=== PATIENT | male | born 1975 | race Caucasian/White ===

== ENCOUNTER 2021-03-07 16:24 | Emergency (ER) | payer BC, SELFPAY ==
[~2021-03-07] VITALS: Ht 180.3 cm; Wt 108.9 kg
[2021-03-07 16:24] VITALS: BP_SYST 108
--- NOTE | 2021-03-07 16:24 | NUR ---
BROUGHT BACK TO OUTSIDE TRIAGE TENT, TRIAGED. AWAITING ER BED.
--- NOTE | 2021-03-07 16:25 | NUR ---
Pt came into ER with complaint of flu like symptoms VSS no distress noted.
--- NOTE | 2021-03-07 16:30 | NUR ---
ER at bedside examining patient.
--- NOTE | 2021-03-07 16:35 | NUR ---
COVID SWAB PERFORMED AT BEDSIDE AND SENT TO LAB
[2021-03-07] MEDS ORDERED: ZIT250 PO (17:40)
[2021-03-07] MEDS ORDERED: PRED20TA PO (17:40)
--- NOTE | 2021-03-07 17:58 | NUR ---
Patient given written and verbal discharge instructions and verbalizes understanding. ER MD discussed with patient the results and treatment provided. Patient in stable condition. ID arm band removed. I Rx of azithromax and prednisone given. Patient educated on pain management and to follow up with PMD. Pain Scale 0/10. Opportunity for questions provided and answered. Medication side effect fact sheet provided.
[2021-03-07 18:01] VITALS: BP_SYST 108
== END 2021-03-07 17:58 | disposition home or self-care (01) ==
LOC: SED 16:24
DX: U07.1 COVID-19 (principal); J12.82 Pneumonia due to coronavirus disease 2019; Z88.8 Allergy status to other drugs, medicaments and biological substances; Z79.899 Other long term (current) drug therapy
CPT/HCPCS: 36415; 71045; 99284

== ENCOUNTER 2021-03-10 14:16 | Inpatient (IN) | payer BC, SELFPAY ==
[~2021-03-10] VITALS: Ht 180.3 cm; Wt 109.8 kg
[2021-03-10 14:16] VITALS: BP_SYST 118
[~2021-03-10 14:16] MED LIST: PRED20TA PO; ZIT250 PO
--- NOTE | 2021-03-10 14:16 | NUR ---
Placed in room 8 . Placed on monitor worker, blood pressure machine and pulse oximeter. To gown for exam. Side rails up.
--- NOTE | 2021-03-10 14:16 | NUR ---
ASSISTED OUT OF CAR TO WHEELCHAIR, PLACED IN BED #8 AND TRIAGED. REPORT GIVEN TO JORGE L
--- NOTE | 2021-03-10 14:20 | NUR ---
PT BIB FAMILY FOR WORSENING SOB AND O2 SAT 88% AT HOME ON RA. PT WAS RECENTLY TESTED + FOR COVID. PT PRESENTS FATIGUED, TACHYPNEIC, DIAPHORETIC. OTHER V/S STABLE. PLACED ON SIMPLE MASK @ 8LPM, O2 SAT 93%
--- NOTE | 2021-03-10 14:30 | NUR ---
# 20 gauge angiocath placed to RAC. Use of asceptic technique. Opsite placed over site. Blood return noted. Blood for lab drawn from site. Flushed with 10 cc of normal saline. No evidence of infiltration noted. Patient tolerated well.
--- NOTE | 2021-03-10 14:50 | NUR ---
ER DR. MEDINA AT THE BEDSIDE EXAMINING PT
--- NOTE | 2021-03-10 15:10 | NUR ---
COVID SWAB PERFORMED AT BEDSIDE AND SENT TO LAB
--- NOTE | 2021-03-10 15:18 | NUR ---
PORTABLE X-RAY AT THE BEDSIDE
[2021-03-10 15:21] LABS: BASOPHILS % (AUTO) 0.8 % (0.0-2.0); HEMATOCRIT 42.4 % (36-54); HEMOGLOBIN 14.3 g/dL (14.0-18.0); LYMPHOCYTES # (AUTO) 0.8 K/uL (1.0-5.5); LYMPHOCYTES % (AUTO) 12.5 % (20.5-51.5); MEAN CORPUSCULAR HEMOGLOBIN 30 pg (27-31); MEAN CORPUSCULAR HGB CONC 34 % (32-36); MEAN CORPUSCULAR VOLUME 89 fL (79.0-98.0); MONOCYTES # (AUTO) 0.5 K/uL (0.0-1.0); MONOCYTES % (AUTO) 8.8 % (1.7-9.3); NEUTROPHILS # (AUTO) 4.7 K/uL (1.8-7.7); NEUTROPHILS % (AUTO) 77.9 % (40.0-70.0); PLATELET COUNT (AUTO) 250 K/uL (130-430); RED BLOOD CELL COUNT(AUTO) 4.76 MIL/uL (4.2-6.2); RED CELL DISTRIBUTION WIDTH 13.4 % (9.0-15.0)
[2021-03-10 15:35] LABS: CALCIUM 8.8 mg/dL (8.4-11.0); CREATININE 1.14 mg/dL (0.55-1.30)
[2021-03-10 15:47] LABS: ALBUMIN 3.1 g/dL (3.4-4.8); INR 0.9 (0.80-1.20); PROTHROMBIN TIME 9.8 SECS (9.5-12.5); TOTAL BILIRUBIN 0.2 mg/dL (0.0-1.0)
[2021-03-10 16:07] LABS: CKMB RELATIVE INDEX 0.1 (0.0-2.9); CREATINE KINASE MB 0.5 ng/mL (0-3.6)
[2021-03-10] MEDS ORDERED: AZITHROMYCIN 500 MG in NS 250 ML IV ONE (16:30)
[2021-03-10] MEDS ORDERED: DEXAMETHASONE SOD PHOSPHATE 10 MG/ML VIAL IVP ONE (16:30)
[2021-03-10 16:37] LABS: C-REACTIVE PROTEIN QUANT 12.2 mg/dL (0-0.5)
[2021-03-10] MEDS ORDERED: AZITHROMYCIN 500 MG/VIAL (ZITHROMAX) IV ONE (16:44)
[2021-03-10] MEDS ORDERED: cefTRIAXone 2 GM VIAL ONE (16:44)
[2021-03-10] MEDS ORDERED: IOHEXOL 350 mgI/mL, 150 ML INFUS..BTL IV ONE (16:45)
--- NOTE | 2021-03-10 16:52 | NUR ---
Patient transported to radiology via WC, accompanied by STAFF.
[2021-03-10] MEDS ORDERED: ALBUTEROL MDI INHALATION 8 GM INH INH PRN (17:30)
[2021-03-10] MEDS: ALBUTEROL MDI INHALATION 8 GM INH INH SCH (18:00)
[2021-03-10] MEDS: DEXAMETHASONE SOD PHOSPHATE 10 MG/ML VIAL IVP SCH (18:40)
[2021-03-10] MEDS: D5/0.45 NS 1,000 ML IV SCH (19:20)
--- NOTE | 2021-03-10 19:21 | NUR ---
REPORT GIVEN TO LINDSEY DUKES FOR CONTINUING CARE
--- NOTE | 2021-03-10 19:49 | NUR ---
ER Ron Tran at bedside examining patient.
--- NOTE | 2021-03-10 20:05 | NUR ---
Urine specimen collected and sent to lab.
[2021-03-10] MEDS ORDERED: ENOXAPARIN SODIUM 40 MG/0.4 ML SYRINGE SUBCUT ONE (21:00)
[2021-03-10] MEDS: ASCORBIC ACID 500 MG TABLET PO SCH (21:11)
[2021-03-10 21:44] LABS: BILIRUBIN,URINE NEGATIVE (NEGATIVE); BLOOD, URINE NEGATIVE (NEGATIVE); CLARITY/URINE CLEAR (CLEAR); COLOR,URINE YELLOW (YELLOW); GLUCOSE,URINE NEGATIVE (NEGATIVE); KETONES,URINE NEGATIVE (NEGATIVE); LEUKOCYTE ESTERASE ,URINE NEGATIVE (NEGATIVE); NITRITE, URINE NEGATIVE (NEGATIVE); PROTEIN URINE NEGATIVE (NEGATIVE); UROBILINOGEN,URINE 0.2 (0.2-1.0)
[2021-03-10 22:26] LABS: BACTERIA,URINE RARE /HPF (None Seen); RBC,URINE NONE SEEN /HPF (0-3)
[2021-03-10 22:28] LABS: MUCUS,URINE None Seen /LPF (None Seen)
--- NOTE | 2021-03-10 22:45 | NUR ---
Provided pillow, water and re-position as request.
--- NOTE | 2021-03-11 01:44 | NUR ---
Patient resting quietly. No acute distress noted. Vital signs within normal range.
--- NOTE | 2021-03-11 03:22 | NUR ---
Patient resting quietly. No acute distress noted. Vital signs within normal range.
--- NOTE | 2021-03-11 05:15 | NUR ---
Patient resting quietly. No acute distress noted. Vital signs within normal range.
--- NOTE | 2021-03-11 05:56 | NUR ---
CONSULTATION PAGED/CALLED Reason for Consultation: COVID PNA Person Who was Notified: JUSTUS Consulting Physician: FRANCES Edi Manager Specialty: Ordering Physician: STEVENSON
--- NOTE | 2021-03-11 05:57 | NUR ---
CONSULTATION PAGED/CALLED Reason for Consultation: COVID PNA Person Who was Notified: JUSTUS Consulting Physician: WAYNE Mis Manager Specialty: Ordering Physician: STEVENSON
[2021-03-11] MEDS: ALBUTEROL MDI INHALATION 8 GM INH INH SCH ×4 (05:59→18:29)
--- NOTE | 2021-03-11 07:18 | NUR ---
REPORT RECEIVED FROM ERNST PORTILLO. PT IS CURRENTLY ON A 100% NON-REBREATHER. CURRENT O2 SAT IS 91%. DR. DANIELS CALLED
[2021-03-11 07:44] LABS: BASOPHILS % (AUTO) 0.2 % (0.0-2.0); HEMATOCRIT 41.6 % (36-54); LYMPHOCYTES # (AUTO) 0.5 K/uL (1.0-5.5); LYMPHOCYTES % (AUTO) 10.1 % (20.5-51.5); MEAN CORPUSCULAR HEMOGLOBIN 30 pg (27-31); MEAN CORPUSCULAR HGB CONC 34 % (32-36); MEAN CORPUSCULAR VOLUME 88 fL (79.0-98.0); MONOCYTES # (AUTO) 0.5 K/uL (0.0-1.0); MONOCYTES % (AUTO) 10.1 % (1.7-9.3); NEUTROPHILS # (AUTO) 4.2 K/uL (1.8-7.7); NEUTROPHILS % (AUTO) 79.6 % (40.0-70.0); PLATELET COUNT (AUTO) 251 K/uL (130-430); RED BLOOD CELL COUNT(AUTO) 4.71 MIL/uL (4.2-6.2); RED CELL DISTRIBUTION WIDTH 13.5 % (9.0-15.0); WHITE BLOOD COUNT (AUTO) 5.2 K/uL (4.8-10.8)
[2021-03-11 07:51] LABS: PROTHROMBIN TIME 10.2 SECS (9.5-12.5)
[2021-03-11] MEDS: ASCORBIC ACID 500 MG TABLET PO SCH ×2 (09:00→20:33)
[2021-03-11] MEDS ORDERED: CHOLECALCIFEROL (VITAMIN D3) 5,000 UNIT TABLET PO SCH (09:00)
[2021-03-11] MEDS: DEXAMETHASONE SOD PHOSPHATE 10 MG/ML VIAL IVP SCH (09:00)
[2021-03-11 09:47] LABS: CALCIUM 8.7 mg/dL (8.4-11.0); CREATININE 0.94 mg/dL (0.55-1.30); POTASSIUM 4.4 mmol/L (3.5-5.1)
[2021-03-11] MEDS ORDERED: ENOXAPARIN SODIUM 40 MG/0.4 ML SYRINGE SUBCUT ONE (10:00)
[2021-03-11 10:02] LABS: ALBUMIN 2.8 g/dL (3.4-4.8); TOTAL BILIRUBIN 0.2 mg/dL (0.0-1.0)
--- NOTE | 2021-03-11 10:20 | NUR ---
ALL AM MEDS GIVEN
[2021-03-11] MEDS: AZITHROMYCIN 500 MG in NS 250 ML IV SCH (10:49)
[2021-03-11] MEDS: PANTOPRAZOLE SODIUM 40 MG/VIAL (PROTONIX) IVP SCH (10:50)
[2021-03-11] MEDS ORDERED: ENOXAPARIN SODIUM 40 MG/0.4 ML SYRINGE ONE (10:52)
--- NOTE | 2021-03-11 11:15 | NUR ---
MRSA COLLECTED AND SENT TO THE LAB
--- NOTE | 2021-03-11 12:59 | NUR ---
DR DANIELS HERE TO SEE PT.
[2021-03-11] MEDS: D5/0.45 NS 1,000 ML IV SCH (13:30)
--- NOTE | 2021-03-11 17:00 | NUR ---
PT PLACED IN A HOSPITAL BED
[2021-03-11 18:04] VITALS: BP_SYST 127
--- NOTE | 2021-03-11 19:00 | NUR ---
pt having dinner in bed
[2021-03-11] MEDS: ENOXAPARIN SODIUM 40 MG/0.4 ML SYRINGE SUBCUT SCH (20:34)
--- NOTE | 2021-03-11 22:10 | NUR ---
pt is currently awake, offered to turn the lights off, however, the pt refused
--- NOTE | 2021-03-11 23:30 | NUR ---
Report recieved from LINDSEY Awad for continuation of care.
--- NOTE | 2021-03-11 23:35 | NUR ---
care endorsed to Jose Manuel PORTILLO
[2021-03-12] VITALS (10 sets, daily range): BP systolic 110–148
[2021-03-12] MEDS: ALBUTEROL MDI INHALATION 8 GM INH INH SCH ×3 (00:31→14:03)
--- NOTE | 2021-03-12 06:00 | NUR ---
800 mL of urine removed from urinal.
--- NOTE | 2021-03-12 06:21 | NUR ---
Dr. Nidia mcelroy for low O2 saturation.
--- NOTE | 2021-03-12 06:23 | NUR ---
Reported O2 saturation to Dr. Jacob, orders received.
[2021-03-12 06:51] LABS: BASOPHILS % (AUTO) 0.1 % (0.0-2.0); HEMATOCRIT 41.7 % (36-54); LYMPHOCYTES # (AUTO) 0.6 K/uL (1.0-5.5); LYMPHOCYTES % (AUTO) 7.1 % (20.5-51.5); MEAN CORPUSCULAR HEMOGLOBIN 30 pg (27-31); MEAN CORPUSCULAR HGB CONC 34 % (32-36); MEAN CORPUSCULAR VOLUME 88 fL (79.0-98.0); MONOCYTES # (AUTO) 0.8 K/uL (0.0-1.0); MONOCYTES % (AUTO) 9.5 % (1.7-9.3); NEUTROPHILS # (AUTO) 7.3 K/uL (1.8-7.7); NEUTROPHILS % (AUTO) 83.3 % (40.0-70.0); PLATELET COUNT (AUTO) 282 K/uL (130-430); RED BLOOD CELL COUNT(AUTO) 4.73 MIL/uL (4.2-6.2); RED CELL DISTRIBUTION WIDTH 13.6 % (9.0-15.0); WHITE BLOOD COUNT (AUTO) 8.8 K/uL (4.8-10.8)
--- NOTE | 2021-03-12 07:10 | NUR ---
Report given to LINDSEY Cobb for continuation of care.
[2021-03-12 07:15] LABS: ALBUMIN 2.8 g/dL (3.4-4.8); CALCIUM 8.7 mg/dL (8.4-11.0); CREATININE 0.91 mg/dL (0.55-1.30); PHOSPHORUS 3.7 mg/dL (2.7-4.5); TOTAL BILIRUBIN 0.3 mg/dL (0.0-1.0)
--- NOTE | 2021-03-12 07:15 | NUR ---
REPORT RECEIVED FROM LINDSEY PEMBERTON FOR CONTINUING CARE
--- NOTE | 2021-03-12 07:36 | NUR ---
RT AT THE BEDSIDE
--- NOTE | 2021-03-12 08:30 | NUR ---
PT PROVIDED WITH BREAKFAST TRAY
[2021-03-12] MEDS ORDERED: CHOLECALCIFEROL (VITAMIN D3) 2,000 UNIT TABLET PO SCH (09:00)
[2021-03-12] MEDS: DEXAMETHASONE SOD PHOSPHATE 10 MG/ML VIAL IVP SCH (09:01)
[2021-03-12] MEDS: PANTOPRAZOLE SODIUM 40 MG/VIAL (PROTONIX) IVP SCH (09:02)
[2021-03-12] MEDS: ASCORBIC ACID 500 MG TABLET PO SCH ×2 (09:02→20:27)
[2021-03-12] MEDS: CHOLECALCIFEROL (VITAMIN D3) 5,000 UNIT TABLET PO SCH (09:02)
[2021-03-12] MEDS: ENOXAPARIN SODIUM 40 MG/0.4 ML SYRINGE SUBCUT SCH ×2 (09:03→20:27)
[2021-03-12] MEDS: ACETAMINOPHEN 500 MG TABLET PO PRN (09:09)
--- NOTE | 2021-03-12 09:47 | NUR ---
SW FOR STATUS UPDATE
[2021-03-12 10:53] LABS: ERYTHROCYTE SEDIMENTATION RATE 69 MM/HR (0-15)
[2021-03-12] MEDS: D5/0.45 NS 1,000 ML IV SCH ×2 (11:56→16:32)
--- NOTE | 2021-03-12 13:00 | NUR ---
TO ICU. RECEIVED PT IN ROOM 127-B, HE WAS ALERT, ORIENTED, SKIN MOIST TO TOUCH, BEADS OF SWEAT ALL OVER HIS BODY, DRY TOWEL PROVIDED, PT CONNECTED TO [place] LAYER, PULSE OXIMETER, HIGH FLOW IN USE, VITAL SIGNS STABLE, ORIENTATION TO SURROUNDINGS PROVIDED, PHONE AND CALL LIGHT IN REACH.
--- NOTE | 2021-03-12 13:30 | NUR ---
IV ANOTHER IV ACCESS INSERTED TO RIGHT HAND BY CHARGE NURSE.
[2021-03-12 13:37] LABS: C-REACTIVE PROTEIN QUANT 9.3 mg/dL (0-0.5)
--- NOTE | 2021-03-12 14:33 | NUR ---
FAMILY CALLED AND SPOKE TO PT'S SARAH FOR HIS UPDATE, DISCUSSED ON PLAN TO INSERT A PICC LINE. SHE STATED TO HOLD OFF ON THE PICC, MIGHT HAVE BLOOD CLOT ISSUE. SHE HAD SPOKEN TO HER SISTER IN LAW WHO IS A NURSE.
[2021-03-12] MEDS: AZITHROMYCIN 500 MG in NS 250 ML IV SCH (16:44)
--- NOTE | 2021-03-12 18:23 | NUR ---
ACTIVITY PATIENT HAVING DINNER AT THIS HOUR AND SPEAKING TO HIS OVER THE PHONE, NEEDS ASSESSED AND ATTENDED.
[2021-03-13] VITALS (24 sets, daily range): BP systolic 119–148
[2021-03-13] MEDS: D5/0.45 NS 1,000 ML IV SCH (03:43)
[2021-03-13] MEDS: ALBUTEROL MDI INHALATION 8 GM INH INH SCH ×4 (05:52→19:31)
--- NOTE | 2021-03-13 06:40 | NUR ---
0030 S/B DR. CESAR NO NEW ORDERS HELL BACK IN AM TO TALK TO PHARMACY, IN CASE NEEDS INTUBATION FOR TRANSFER TO HIGHER LEVEL OF CARE.
--- NOTE | 2021-03-13 06:42 | NUR ---
[id number] DOWNTIME CHARTING SEE PRINT OUTS.
--- NOTE | 2021-03-13 06:52 | NUR ---
Nutrition Update Eliseo Scale 18 noted. Pt admitted for Acute Respiratory Failure, COVID Pneumonia Diet: Regular BMI: 33.9 kg/m2 RD to follow per nutrition care standards.
--- NOTE | 2021-03-13 07:00 | NUR ---
Recv report fr Adkins rn, patient came fr home already previously diagnosed with covid, he came in for increasing sob, patient is in icu for close monitoring, he is currently on 40L @ 100% hi flow, he aao x 4, he complains of pain whenever he take deep breath, i will check his med orders to see if has any pain medication order, i will continuue nursing care and interventions.
[2021-03-13 07:35] LABS: CALCIUM 8.7 mg/dL (8.4-11.0); CREATININE 0.81 mg/dL (0.55-1.30); POTASSIUM 3.9 mmol/L (3.5-5.1)
[2021-03-13 07:40] LABS: ALBUMIN 2.4 g/dL (3.4-4.8); C-REACTIVE PROTEIN QUANT 8.4 mg/dL (0-0.5); TOTAL BILIRUBIN 0.4 mg/dL (0.0-1.0)
[2021-03-13 07:56] LABS: BASOPHILS % (AUTO) 0.1 % (0.0-2.0); HEMATOCRIT 39.4 % (36-54); HEMOGLOBIN 13.3 g/dL (14.0-18.0); LYMPHOCYTES # (AUTO) 0.7 K/uL (1.0-5.5); LYMPHOCYTES % (AUTO) 6.5 % (20.5-51.5); MEAN CORPUSCULAR HEMOGLOBIN 30 pg (27-31); MEAN CORPUSCULAR HGB CONC 34 % (32-36); MEAN CORPUSCULAR VOLUME 89 fL (79.0-98.0); MONOCYTES % (AUTO) 9.1 % (1.7-9.3); NEUTROPHILS # (AUTO) 9.4 K/uL (1.8-7.7); NEUTROPHILS % (AUTO) 84.3 % (40.0-70.0); PLATELET COUNT (AUTO) 299 K/uL (130-430); RED BLOOD CELL COUNT(AUTO) 4.44 MIL/uL (4.2-6.2); RED CELL DISTRIBUTION WIDTH 13.5 % (9.0-15.0); WHITE BLOOD COUNT (AUTO) 11.1 K/uL (4.8-10.8)
[2021-03-13] MEDS: PANTOPRAZOLE SODIUM 40 MG/VIAL (PROTONIX) IVP SCH (08:48)
[2021-03-13] MEDS: DEXAMETHASONE SOD PHOSPHATE 10 MG/ML VIAL IVP SCH (08:49)
[2021-03-13] MEDS: CHOLECALCIFEROL (VITAMIN D3) 5,000 UNIT TABLET PO SCH (08:49)
[2021-03-13] MEDS: ASCORBIC ACID 500 MG TABLET PO SCH ×2 (08:49→21:44)
[2021-03-13] MEDS: ACETAMINOPHEN 500 MG TABLET PO PRN (08:58)
--- NOTE | 2021-03-13 10:44 | NUR ---
Patient agreed to prone...
[2021-03-13] MEDS ORDERED: IVERMECTIN 3 MG TABLET PO ONE ×2 (13:00→20:30)
--- NOTE | 2021-03-13 13:28 | NUR ---
[facility] CONSULTING MD: DR. CELAYA DIALED: [phone] PERSON NOTIFIED: TRISHA ORDERED BY: DR. GAMINO
[2021-03-13] MEDS: ENOXAPARIN SODIUM 40 MG/0.4 ML SYRINGE SUBCUT SCH ×2 (14:01→21:02)
[2021-03-13] MEDS: BARICITINIB -Non-Formulary 2 MG TABLET PO SCH (14:02)
--- NOTE | 2021-03-13 15:35 | NUR ---
Remains in prone position. Sats 97%, HR 60. Pt sleeping. Remains on 100% High Flow. Voided 500cc prieto urine.
--- NOTE | 2021-03-13 17:20 | NUR ---
RT NOTE: 1720 Pt awake and wanted to sit up in bed. SpO2 dropped to low 80s. Increased FiO2 to 100% and flow to 40LPM on vapotherm. SpO2 is slowly improving. RN notified. Addendum: 03/13/21 at 1748 by Yoon Moran RT Amended: Links added.
[2021-03-13] MEDS: DOXYCYCLINE HYCLATE 100 MG in D5W 100 ML IV SCH (21:42)
--- NOTE | 2021-03-13 23:33 | NUR ---
Late Entry @1950, received patient from Leighton PORTILLO. Patient is aao x4, covid-19 positive. He is on 40L , 100% Hi Flow with saturation at 91%. Lung sounds are diminished with rhonchi, He denies any pain at this time. Sinus Rhythm on the monitor. PIV #20 on the RAC running D51/2NS @50ML/HR and #20 on the RFA. Abdomen is soft and non tender. No edema in extremities. Skin is intact. Patient able to void in a urinal. Assisted with repositioning. will continue to monitor.
[2021-03-14] VITALS (25 sets, daily range): BP systolic 114–161
--- NOTE | 2021-03-14 00:22 | NUR ---
Patient in prone position in bed, saturation at 88-90%.
[2021-03-14] MEDS: ALBUTEROL MDI INHALATION 8 GM INH INH SCH ×5 (05:41→23:35)
--- NOTE | 2021-03-14 07:15 | NUR ---
received report from endorsing operation shift supervisor RN for continuation of care, patient is lying in bed with an IVF of D5 1/2 NS @ 50 ml/hr.no signs of acute distress noted at this time. awake oriented x 4. on High Flow 40L ,95%. sinus rhythm, oxygen saturation is between 85-90 advised to keep on turning from side to side or do proning, uses the urinal 450 ml, dark prieto in color.bed locked at lowest position, fall and safety precaution in place.
[2021-03-14 07:29] LABS: BASOPHILS % (AUTO) 0.1 % (0.0-2.0); HEMATOCRIT 38.7 % (36-54); HEMOGLOBIN 13.3 g/dL (14.0-18.0); LYMPHOCYTES % (AUTO) 9.2 % (20.5-51.5); MEAN CORPUSCULAR HEMOGLOBIN 30 pg (27-31); MEAN CORPUSCULAR HGB CONC 34 % (32-36); MEAN CORPUSCULAR VOLUME 88 fL (79.0-98.0); MONOCYTES # (AUTO) 1.2 K/uL (0.0-1.0); MONOCYTES % (AUTO) 10.8 % (1.7-9.3); NEUTROPHILS # (AUTO) 8.9 K/uL (1.8-7.7); NEUTROPHILS % (AUTO) 79.9 % (40.0-70.0); PLATELET COUNT (AUTO) 316 K/uL (130-430); RED BLOOD CELL COUNT(AUTO) 4.42 MIL/uL (4.2-6.2); RED CELL DISTRIBUTION WIDTH 13.1 % (9.0-15.0); WHITE BLOOD COUNT (AUTO) 11.2 K/uL (4.8-10.8)
[2021-03-14] MEDS: DOXYCYCLINE HYCLATE 100 MG in D5W 100 ML IV SCH ×2 (08:06→21:50)
[2021-03-14] MEDS: ASCORBIC ACID 500 MG TABLET PO SCH ×2 (08:07→21:51)
[2021-03-14] MEDS: CHOLECALCIFEROL (VITAMIN D3) 5,000 UNIT TABLET PO SCH (08:08)
[2021-03-14] MEDS: BARICITINIB -Non-Formulary 2 MG TABLET PO SCH (08:10)
[2021-03-14] MEDS: DEXAMETHASONE SOD PHOSPHATE 10 MG/ML VIAL IVP SCH (08:10)
[2021-03-14] MEDS: ENOXAPARIN SODIUM 40 MG/0.4 ML SYRINGE SUBCUT SCH ×2 (08:21→21:52)
[2021-03-14] MEDS: PANTOPRAZOLE SODIUM 40 MG/VIAL (PROTONIX) IVP SCH (08:22)
[2021-03-14 11:06] LABS: ALBUMIN 2.3 g/dL (3.4-4.8); CALCIUM 8.7 mg/dL (8.4-11.0); CREATININE 0.79 mg/dL (0.55-1.30); POTASSIUM 4.2 mmol/L (3.5-5.1); TOTAL BILIRUBIN 0.4 mg/dL (0.0-1.0)
--- NOTE | 2021-03-14 11:40 | NUR ---
TALKED TO PATIENT SARAH ON THE PHONE, UPDATED PATIENT STATUS.
--- NOTE | 2021-03-14 17:00 | NUR ---
provided oral care, bedside care and provided partial bed bath.
[2021-03-14] MEDS ORDERED: IVERMECTIN 3 MG TABLET PO ONE (18:30)
[2021-03-14] MEDS: D5/0.45 NS 1,000 ML IV SCH (21:51)
[2021-03-15] VITALS (23 sets, daily range): BP systolic 117–161
[2021-03-15] MEDS: guaiFENesin 200 MG/10 ML UDC PO PRN ×2 (00:40→21:57)
[2021-03-15] MEDS ORDERED: guaiFENesin 200 MG/10 ML UDC ONE (00:44)
[2021-03-15] MEDS: ALBUTEROL MDI INHALATION 8 GM INH INH SCH ×2 (06:00→11:29)
[2021-03-15 06:23] LABS: BASOPHILS % (AUTO) 0.1 % (0.0-2.0); EOSINOPHILS % (AUTO) 0.1 % (0.0-4.0); HEMATOCRIT 39.6 % (36-54); HEMOGLOBIN 13.3 g/dL (14.0-18.0); LYMPHOCYTES # (AUTO) 1.4 K/uL (1.0-5.5); LYMPHOCYTES % (AUTO) 10.1 % (20.5-51.5); MEAN CORPUSCULAR HEMOGLOBIN 30 pg (27-31); MEAN CORPUSCULAR HGB CONC 34 % (32-36); MEAN CORPUSCULAR VOLUME 88 fL (79.0-98.0); MONOCYTES # (AUTO) 1.2 K/uL (0.0-1.0); MONOCYTES % (AUTO) 8.4 % (1.7-9.3); NEUTROPHILS # (AUTO) 11.2 K/uL (1.8-7.7); NEUTROPHILS % (AUTO) 81.3 % (40.0-70.0); PLATELET COUNT (AUTO) 318 K/uL (130-430); RED BLOOD CELL COUNT(AUTO) 4.49 MIL/uL (4.2-6.2); RED CELL DISTRIBUTION WIDTH 13.3 % (9.0-15.0); WHITE BLOOD COUNT (AUTO) 13.8 K/uL (4.8-10.8)
[2021-03-15 07:19] LABS: ALBUMIN 2.2 g/dL (3.4-4.8); C-REACTIVE PROTEIN QUANT 2.6 mg/dL (0-0.5); CALCIUM 8.5 mg/dL (8.4-11.0); CREATININE 0.71 mg/dL (0.55-1.30); POTASSIUM 4.6 mmol/L (3.5-5.1); TOTAL BILIRUBIN 0.6 mg/dL (0.0-1.0)
--- NOTE | 2021-03-15 07:19 | NUR ---
received report from endorsing site medical director RN using SBAR approach.
--- NOTE | 2021-03-15 07:52 | NUR ---
received patient lying in bed with an IVF of D5 1/2 NS @ 50 ml/hr. High Flow 30 L, 90% oxygen saturation is between 88-90%.provided partial bed bath.
[2021-03-15] MEDS: CHOLECALCIFEROL (VITAMIN D3) 5,000 UNIT TABLET PO SCH (08:17)
[2021-03-15] MEDS: ASCORBIC ACID 500 MG TABLET PO SCH ×2 (08:18→21:56)
[2021-03-15] MEDS: PANTOPRAZOLE SODIUM 40 MG/VIAL (PROTONIX) IVP SCH (08:21)
[2021-03-15] MEDS: DEXAMETHASONE SOD PHOSPHATE 10 MG/ML VIAL IVP SCH (08:25)
[2021-03-15] MEDS: ENOXAPARIN SODIUM 40 MG/0.4 ML SYRINGE SUBCUT SCH ×2 (08:31→21:59)
[2021-03-15] MEDS: DOXYCYCLINE HYCLATE 100 MG in D5W 100 ML IV SCH ×2 (08:35→21:57)
[2021-03-15] MEDS: BARICITINIB -Non-Formulary 2 MG TABLET PO SCH (08:36)
--- NOTE | 2021-03-15 10:47 | NUR ---
ADVISED PATIENT TO KEEP ON TURNING FROM SIDE TO SIDE OR DO PRONING, O2 SATURATION IS BETWEEN 88-91 %. PROVIDED A CHAIR AND ADVISED TO KEEP ON THE CHAIR FOR ABOUT 20-30 MINUTES, PATIENT SAID THAT HE WILL DO IT LATER.
[2021-03-15] MEDS: NYSTATIN 500,000 UNITS/5 ML UDC PO SCH ×2 (12:22→17:48)
--- NOTE | 2021-03-15 13:30 | NUR ---
PATIENT FAMILY REQUEST RN TO GIVE THE SANTA TO THE PATIENT. SANTA WAS GIVEN TO PATIENT AT THE BEDSIDE.
--- NOTE | 2021-03-15 13:45 | NUR ---
PROVIDED BEDSIDE CARE AND ASSISTED PATIENT GOING TO THE BATHROOM.
--- NOTE | 2021-03-15 16:31 | NUR ---
Dietitian Recommendations * Recommend regular diet w/ Ensure Enlive BID (ONS provides an additional 700 kcal/day, 40 gm protein/day) LAAN MOORE Please refer to Nutrition Assessment for details. Addendum: 03/15/21 at [address] Amended: Links added.
--- NOTE | 2021-03-15 17:06 | NUR ---
P.T. NOTES P.T. EVAL COMPLETED; REFER TO EVAL FOR DETAILS; ENDORSED TO NURSING; O2 SAT HiFLOW 35L N/C=89-91% AT REST IN SITTING, 93-96% W/ STANDING & EXERTION.
[2021-03-15] MEDS: D5/0.45 NS 1,000 ML IV SCH (17:30)
--- NOTE | 2021-03-15 19:30 | NUR ---
Pt report received. Pt AAOx4, sitting up in chair watching TV. O2 at 35LPM/HFNC at 90% FiO2, SPO2 at 92% Mild SOB noted upon exertion, productive cough with brown sputum. PIV RAC patent and secure with D5 1/2 NS at 50 mL/hr. PIV Right wrist patent and secure. Pt able to stand and ambulate and perform ADLs with minimal assistance. No needs verbalized at this time. VSS, NAD.
--- NOTE | 2021-03-15 20:00 | NUR ---
Dr. Babin making rounds.
[2021-03-15] MEDS: ACETAMINOPHEN 500 MG TABLET PO PRN (21:58)
--- NOTE | 2021-03-15 21:58 | NUR ---
Pt given Robitussin and Tylenol for c/o cough and sore throat.
[2021-03-16] VITALS (21 sets, daily range): BP systolic 107–129
[2021-03-16] MEDS: NYSTATIN 500,000 UNITS/5 ML UDC PO SCH ×4 (00:57→18:31)
--- NOTE | 2021-03-16 05:14 | NUR ---
SPO2 80-82%. FiO2 increased to 100%, SPO2 increases to 84%. Pt AAOx4, sitting up in bed. Mild SOB noted, denies dizziness or C/P. RT notified.
--- NOTE | 2021-03-16 05:22 | NUR ---
RT at bedside. Pt placed on NRB face mask at 40 LPM and 100% FiO2. SPO2 increases to 90%.
[2021-03-16] MEDS: ALBUTEROL MDI INHALATION 8 GM INH INH SCH ×3 (06:00→18:00)
[2021-03-16 06:51] LABS: BASOPHILS % (AUTO) 0.1 % (0.0-2.0); EOSINOPHILS % (AUTO) 0.1 % (0.0-4.0); HEMATOCRIT 40.2 % (36-54); HEMOGLOBIN 13.4 g/dL (14.0-18.0); LYMPHOCYTES # (AUTO) 1.3 K/uL (1.0-5.5); LYMPHOCYTES % (AUTO) 9.9 % (20.5-51.5); MEAN CORPUSCULAR HEMOGLOBIN 30 pg (27-31); MEAN CORPUSCULAR HGB CONC 33 % (32-36); MEAN CORPUSCULAR VOLUME 89 fL (79.0-98.0); MONOCYTES # (AUTO) 1.2 K/uL (0.0-1.0); MONOCYTES % (AUTO) 8.7 % (1.7-9.3); NEUTROPHILS % (AUTO) 81.2 % (40.0-70.0); PLATELET COUNT (AUTO) 321 K/uL (130-430); RED BLOOD CELL COUNT(AUTO) 4.51 MIL/uL (4.2-6.2); RED CELL DISTRIBUTION WIDTH 13.4 % (9.0-15.0); WHITE BLOOD COUNT (AUTO) 13.5 K/uL (4.8-10.8)
--- NOTE | 2021-03-16 07:20 | NUR ---
Pt report given to oncoming RN. Pt alert, sitting up in bed, watching TV. Pt continues to be on NRB face mask at 40 LPM and 100% FiO2, SPO2 92%. D5 1/2 NS at 50 mL/hr. No needs verbalized at this time. VSS, NAD.
[2021-03-16 07:37] LABS: CALCIUM 8.6 mg/dL (8.4-11.0); CREATININE 0.9 mg/dL (0.55-1.30); POTASSIUM 4.5 mmol/L (3.5-5.1)
[2021-03-16 07:39] LABS: ALBUMIN 2.4 g/dL (3.4-4.8); TOTAL BILIRUBIN 0.4 mg/dL (0.0-1.0)
[2021-03-16] MEDS: DOXYCYCLINE HYCLATE 100 MG in D5W 100 ML IV SCH ×2 (08:59→21:47)
[2021-03-16] MEDS: DEXAMETHASONE SOD PHOSPHATE 10 MG/ML VIAL IVP SCH (08:59)
[2021-03-16] MEDS: ENOXAPARIN SODIUM 40 MG/0.4 ML SYRINGE SUBCUT SCH ×2 (09:00→21:47)
[2021-03-16] MEDS: ASCORBIC ACID 500 MG TABLET PO SCH ×2 (09:00→21:47)
[2021-03-16] MEDS: PANTOPRAZOLE SODIUM 40 MG/VIAL (PROTONIX) IVP SCH (09:00)
[2021-03-16] MEDS: CHOLECALCIFEROL (VITAMIN D3) 5,000 UNIT TABLET PO SCH (09:00)
[2021-03-16] MEDS: BARICITINIB -Non-Formulary 2 MG TABLET PO SCH (09:07)
[2021-03-16 09:41] LABS: C-REACTIVE PROTEIN QUANT 5.5 mg/dL (0-0.5)
--- NOTE | 2021-03-16 10:38 | NUR ---
rec'd report earlier from offgoing nurse pt john/john/ox4 ls bilat diminish bilat no cough noted pt sitting up watching tv overall appearances fair is on 5L via nc nawaf randolph denies pain , comfort and safety maintained Addendum: 03/16/21 at 1420 by [employer] appointment coordinator pt is on hiflow nc at 40L fio2 100% NOT 5l VIA NC
--- NOTE | 2021-03-16 16:43 | NUR ---
PT CONDITION REMAINS STABLE THROUGHOUT THE SHIFT BUT REMAINS ON HIFLOW NC CONNOR WELL
[2021-03-16] MEDS: D5/0.45 NS 1,000 ML IV SCH (18:32)
[2021-03-17] VITALS (22 sets, daily range): BP systolic 95–170
[2021-03-17] MEDS: ALBUTEROL MDI INHALATION 8 GM INH INH SCH ×5 (01:00→20:14)
[2021-03-17] MEDS: NYSTATIN 500,000 UNITS/5 ML UDC PO SCH ×4 (05:36→17:33)
[2021-03-17] MEDS: DEXAMETHASONE SOD PHOSPHATE 10 MG/ML VIAL IVP SCH (08:24)
[2021-03-17] MEDS: PANTOPRAZOLE SODIUM 40 MG/VIAL (PROTONIX) IVP SCH (08:24)
[2021-03-17] MEDS: ASCORBIC ACID 500 MG TABLET PO SCH ×2 (08:25→21:00)
[2021-03-17] MEDS: ENOXAPARIN SODIUM 40 MG/0.4 ML SYRINGE SUBCUT SCH ×2 (08:25→21:00)
[2021-03-17] MEDS: CHOLECALCIFEROL (VITAMIN D3) 5,000 UNIT TABLET PO SCH (08:25)
[2021-03-17] MEDS: BARICITINIB -Non-Formulary 2 MG TABLET PO SCH (08:27)
[2021-03-17] MEDS: DOXYCYCLINE HYCLATE 100 MG in D5W 100 ML IV SCH ×2 (08:28→21:00)
[2021-03-17] MEDS: D5/0.45 NS 1,000 ML IV SCH (09:30)
--- NOTE | 2021-03-17 11:09 | NUR ---
PT WAS ASSESS IS A/A/OX4 REMAIN ON HIFLOW NC 90% FIO2 LUNG SOUNDS REMAINS DIMINISHED ENC TO USED IS AT BEDSIDE OVERALL APPEARANCES FAIR DENIES PAIN/DISCOMFORT TEACHING GIVEN R/T PLAN OF CARE
--- NOTE | 2021-03-17 17:55 | NUR ---
PT CONDITION REMAIN STABLE THROUGHOUT THE SHIFT WITHOUT INCIDENT
[2021-03-18] VITALS (24 sets, daily range): BP systolic 108–163
[2021-03-18] MEDS: D5/0.45 NS 1,000 ML IV SCH (06:09)
[2021-03-18] MEDS: NYSTATIN 500,000 UNITS/5 ML UDC PO SCH ×5 (06:09→23:42)
[2021-03-18 06:55] LABS: BASOPHILS % (AUTO) 0.1 % (0.0-2.0); EOSINOPHILS % (AUTO) 0.1 % (0.0-4.0); HEMATOCRIT 38.8 % (36-54); HEMOGLOBIN 12.7 g/dL (14.0-18.0); LYMPHOCYTES % (AUTO) 13.7 % (20.5-51.5); MEAN CORPUSCULAR HEMOGLOBIN 29 pg (27-31); MEAN CORPUSCULAR HGB CONC 33 % (32-36); MEAN CORPUSCULAR VOLUME 88 fL (79.0-98.0); MONOCYTES # (AUTO) 1.3 K/uL (0.0-1.0); MONOCYTES % (AUTO) 9.2 % (1.7-9.3); NEUTROPHILS % (AUTO) 76.9 % (40.0-70.0); PLATELET COUNT (AUTO) 328 K/uL (130-430); RED BLOOD CELL COUNT(AUTO) 4.39 MIL/uL (4.2-6.2); WHITE BLOOD COUNT (AUTO) 14.3 K/uL (4.8-10.8)
--- NOTE | 2021-03-18 07:30 | NUR ---
received report from nightman RN, droplet precautions for COVID, pt sitting up in bed, HFNC 40L, 80% FIO2, pt RR 20-25, pt states he is comfortable, denies pain, will continue to monitor.
[2021-03-18] MEDS: ALBUTEROL MDI INHALATION 8 GM INH INH SCH ×3 (07:43→19:14)
[2021-03-18 09:04] LABS: ALBUMIN 2.5 g/dL (3.4-4.8); CALCIUM 8.7 mg/dL (8.4-11.0); CREATININE 0.9 mg/dL (0.55-1.30); POTASSIUM 4.4 mmol/L (3.5-5.1); TOTAL BILIRUBIN 0.3 mg/dL (0.0-1.0)
[2021-03-18] MEDS: DEXAMETHASONE SOD PHOSPHATE 10 MG/ML VIAL IVP SCH (09:22)
[2021-03-18] MEDS: PANTOPRAZOLE SODIUM 40 MG/VIAL (PROTONIX) IVP SCH (09:22)
[2021-03-18] MEDS: DOXYCYCLINE HYCLATE 100 MG in D5W 100 ML IV SCH ×2 (09:22→20:43)
[2021-03-18] MEDS: BARICITINIB -Non-Formulary 2 MG TABLET PO SCH (09:23)
[2021-03-18] MEDS: CHOLECALCIFEROL (VITAMIN D3) 5,000 UNIT TABLET PO SCH (09:23)
[2021-03-18] MEDS: ASCORBIC ACID 500 MG TABLET PO SCH ×2 (09:23→20:44)
[2021-03-18] MEDS: ENOXAPARIN SODIUM 40 MG/0.4 ML SYRINGE SUBCUT SCH ×2 (09:26→20:44)
--- NOTE | 2021-03-18 11:00 | NUR ---
RT NOTE: 1100 Moved pt from 127B to ICU1 with NRB. Placed on Vapotherm 35LPM at 75%. RN Samantha at bedside and aware of high flow settings. SpO2 is at 96% and HR 67bpm. Will titrate HFNC settings as tolerated by pt.
--- NOTE | 2021-03-18 11:30 | NUR ---
pt transferred from room 127B to ICU 1, pt titrated down to 35L FIO2 65%, pt denies shortness of breath, pt denies pain, encouraged pt to sit up in chair, vital signs stable, will continue to monitor.
--- NOTE | 2021-03-18 12:45 | NUR ---
pt sitting up in chair eating lunch, no signs of cardiac or resp distress.
--- NOTE | 2021-03-18 15:35 | NUR ---
RT NOTE: 1535 Titrated Vapotherm to 30LPM at 60% FiO2. Pt's SpO2 is between 92-95%. No resp distress noted. Tolerating change well. LINDSEY Tijerina aware of changes. Addendum: 03/18/21 at 1555 by Yoon Moran RT Amended: Links added.
--- NOTE | 2021-03-18 16:00 | NUR ---
pt sitting up in chair, on 30L HFNC, FIO2 60%, pt denies shortness of breath, pt denies pain, vital signs stable, will continue to monitor.
--- NOTE | 2021-03-18 17:30 | NUR ---
RT NOTE: 1730 Pt placed on 7LPM oxymizer, 58% FiO2. SpO2 is between 93-96%, HR 64, and RR 22. Tolerating well, no resp distress noted. RN Berenice aware of changes.
[2021-03-19] VITALS (24 sets, daily range): BP systolic 116–159
[2021-03-19] MEDS: ALBUTEROL MDI INHALATION 8 GM INH INH SCH ×4 (01:01→19:38)
[2021-03-19] MEDS: D5/0.45 NS 1,000 ML IV SCH ×2 (04:20→21:30)
[2021-03-19] MEDS: NYSTATIN 500,000 UNITS/5 ML UDC PO SCH ×3 (05:39→17:42)
--- NOTE | 2021-03-19 07:39 | NUR ---
Recv report fr Adkins rn, patient is in bed aao x4 , patient is improving, he is currently on oximizer at 7L @ 58% O2 sat is 97% , patient denies pain, telemetry shows sr, patient intdependent with meals, voids in the urinal, skin is warm to touch, pulses palpable, i will continue nursing care and interventions.
[2021-03-19] MEDS: DOXYCYCLINE HYCLATE 100 MG in D5W 100 ML IV SCH ×2 (08:35→20:24)
[2021-03-19] MEDS: PANTOPRAZOLE SODIUM 40 MG/VIAL (PROTONIX) IVP SCH (08:36)
[2021-03-19] MEDS: ASCORBIC ACID 500 MG TABLET PO SCH ×2 (08:36→20:23)
[2021-03-19] MEDS: guaiFENesin 200 MG/10 ML UDC PO PRN (08:36)
[2021-03-19] MEDS: CHOLECALCIFEROL (VITAMIN D3) 5,000 UNIT TABLET PO SCH (08:36)
[2021-03-19] MEDS: DEXAMETHASONE SOD PHOSPHATE 10 MG/ML VIAL IVP SCH (08:37)
[2021-03-19] MEDS: ENOXAPARIN SODIUM 40 MG/0.4 ML SYRINGE SUBCUT SCH ×2 (08:38→20:23)
--- NOTE | 2021-03-19 10:00 | NUR ---
Patient sitting up in the chair, started doing the incentive spirometry @ 500 L, patient is cooperative, denies pain, O2 sat @ 95%...
[2021-03-19 11:00] LABS: CALCIUM 8.8 mg/dL (8.4-11.0); CREATININE 0.9 mg/dL (0.55-1.30); POTASSIUM 4.2 mmol/L (3.5-5.1)
[2021-03-19 11:03] LABS: ALBUMIN 2.5 g/dL (3.4-4.8); C-REACTIVE PROTEIN QUANT 0.9 mg/dL (0-0.5); TOTAL BILIRUBIN 0.8 mg/dL (0.0-1.0)
[2021-03-19] MEDS: BARICITINIB -Non-Formulary 2 MG TABLET PO SCH (11:46)
--- NOTE | 2021-03-19 12:00 | NUR ---
Unable to flush the line, inserted a new iv heplock in the L antecubital...
--- NOTE | 2021-03-19 14:00 | NUR ---
Patient remains in the chair , o2 sat at 96% , patient is independently transferring fr bed to chair, telemtry shows noraml sinus rhythm . i will continue to monitor the patient.
--- NOTE | 2021-03-19 16:00 | NUR ---
Patient remains sitting in the chair, no shortness of breath, denies pain, stable all shift, i will continue to nursing care and interventions.
--- NOTE | 2021-03-19 18:00 | NUR ---
Titrated Oximizer down to 3L @ 58%, patient is saturating between 92% to 95%, patient said he is feeling ok. Also family wanted to stay with Dr. Jacob as the pulmonologists. patients bp stable all day, i will endorse care to travel trailer components assembler nurse.
--- NOTE | 2021-03-19 23:15 | NUR ---
DR DANIELS HERE TO SEE PATIENT. MADE AWARE THAT DR. RUDOLPH'S GROUP WILL BE TAKING OVER THE ACTIVE PULMO GROUP OVERSEEING THIS PATIENT REQUESTED BY PATIENTS . DR. GAMINO WAS CALLED AND SPOKE DIRECTLY TO DR. DANIELS ON TRANSFER OF CARE. ALL PARTIES NOTIFIED.
[2021-03-20] VITALS (19 sets, daily range): BP systolic 110–159
[2021-03-20] MEDS: ALBUTEROL MDI INHALATION 8 GM INH INH SCH ×4 (00:04→19:35)
[2021-03-20] MEDS: NYSTATIN 500,000 UNITS/5 ML UDC PO SCH ×4 (00:07→17:07)
--- NOTE | 2021-03-20 01:00 | NUR ---
Received report from PM nurseLucille, using SBAR approach.
--- NOTE | 2021-03-20 01:15 | NUR ---
Patient is resting in bed, no shortness of breath, denies pain. Asked patient if he needed anything and patient stated no thank you.
[2021-03-20 06:39] LABS: BASOPHILS # (AUTO) 0.1 K/uL (0.0-0.2); BASOPHILS % (AUTO) 0.8 % (0.0-2.0); EOSINOPHILS % (AUTO) 0.1 % (0.0-4.0); HEMATOCRIT 39.3 % (36-54); LYMPHOCYTES # (AUTO) 2.1 K/uL (1.0-5.5); LYMPHOCYTES % (AUTO) 17.4 % (20.5-51.5); MEAN CORPUSCULAR HEMOGLOBIN 30 pg (27-31); MEAN CORPUSCULAR HGB CONC 33 % (32-36); MEAN CORPUSCULAR VOLUME 89 fL (79.0-98.0); MONOCYTES # (AUTO) 1.1 K/uL (0.0-1.0); MONOCYTES % (AUTO) 9.4 % (1.7-9.3); NEUTROPHILS # (AUTO) 8.5 K/uL (1.8-7.7); NEUTROPHILS % (AUTO) 72.3 % (40.0-70.0); PLATELET COUNT (AUTO) 330 K/uL (130-430); RED BLOOD CELL COUNT(AUTO) 4.42 MIL/uL (4.2-6.2); RED CELL DISTRIBUTION WIDTH 13.4 % (9.0-15.0); WHITE BLOOD COUNT (AUTO) 11.8 K/uL (4.8-10.8)
[2021-03-20 07:03] LABS: ANION GAP 8 (5-15); CALCIUM 8.5 mg/dL (8.4-11.0); CHLORIDE 102 mmol/L (98-107); CREATININE 0.88 mg/dL (0.55-1.30); GLUCOSE 95 mg/dL (70-99); SODIUM SERUM 137 mmol/L (136-145); UREA NITROGEN, BLOOD 17 mg/dL (8-21)
[2021-03-20 07:05] LABS: GFR AFRICAN AMERICAN 121 mL/min (>90)
[2021-03-20 07:07] LABS: ALANINE AMINOTRANSFERASE 86 U/L (12-78); ALBUMIN 2.5 g/dL (3.4-4.8); ASPARTATE AMINOTRANSFERASE 23 U/L (10-37); C-REACTIVE PROTEIN QUANT < 0.2 mg/dL (0-0.5); LACTATE DEHYDROGENASE 204 U/L (85-227); TOTAL BILIRUBIN 0.5 mg/dL (0.0-1.0)
--- NOTE | 2021-03-20 07:23 | NUR ---
INITIAL REPORT RECEIVED FROM NIGHT RN. PT AWAKE & ALERT. PT VERBALIZED NO PAIN & NO S&S OF DISTRESS NOTED. BED LOCKED, IN LOWEST POSITION & CALL LIGHT WITHIN REACH
[2021-03-20] MEDS: PANTOPRAZOLE SODIUM 40 MG/VIAL (PROTONIX) IVP SCH (08:11)
[2021-03-20] MEDS: DOXYCYCLINE HYCLATE 100 MG in D5W 100 ML IV SCH (08:11)
[2021-03-20] MEDS: CHOLECALCIFEROL (VITAMIN D3) 5,000 UNIT TABLET PO SCH (08:12)
[2021-03-20] MEDS: DEXAMETHASONE SOD PHOSPHATE 10 MG/ML VIAL IVP SCH (08:12)
[2021-03-20] MEDS: BARICITINIB -Non-Formulary 2 MG TABLET PO SCH (08:13)
[2021-03-20] MEDS: ASCORBIC ACID 500 MG TABLET PO SCH ×2 (08:13→21:23)
[2021-03-20] MEDS: ENOXAPARIN SODIUM 40 MG/0.4 ML SYRINGE SUBCUT SCH ×2 (08:16→21:25)
--- NOTE | 2021-03-20 15:20 | NUR ---
ASSESS O2 sat ASSESSED O2 SAT: IN BED: 92% ; HR 95; RR 25 134/87 WALKING IN ROOM: 87% ; HR 108; RR 45-51; 157/88 IN BED: 92% ; 103 HR; RR 33; 157/87 PT STATED " I FEEL FINE & I LIKE STANDING UP" PT SHOWED NO S&S OF DISTRESS
--- NOTE | 2021-03-20 18:40 | NUR ---
TRANSFERRED PT PT TRANSFERRED TO M/S/T UNIT IN ROOM 126B. PT'S VS(S) ARE WNR & VERBALIZED NO S&S OF DISTRESS OR SOB
--- NOTE | 2021-03-20 19:30 | NUR ---
OPENING NOTE PATIENT AWAKE ALERT ORIENTED X4 BREATHING WITH 3 LPM OXYGEN BY N/C. NO SIGNS OF RESPIRATORY DISTRESS OR PAIN. HAS SHORTNESS OF BREATH ONLY WITH ACTIVITY RELIEVED AT REST. IV ITE PATIENT AND INTACT LEFT AC. BED IS LOW AND CALL LIGHTS WITHIN REACH AND BED IS LOW.
--- NOTE | 2021-03-21 | NUR ---
PATIENT IS COMFORTABLE RESTING IN BED NO SIGNS OF PAIN OR DISTRESS. TITRATED PATIENT FROM 3 LPM OXYGEN N/C TO 2 LPM SATURATION IS 98%. WILL CONTINUE TITRATING DOWN TOLERATED. BED IS LOW AND CALL LIGHT IS WITHIN REACH.
[2021-03-21] MEDS: ALBUTEROL MDI INHALATION 8 GM INH INH SCH ×4 (00:07→17:46)
[2021-03-21] MEDS: NYSTATIN 500,000 UNITS/5 ML UDC PO SCH ×4 (00:15→17:45)
--- NOTE | 2021-03-21 04:00 | NUR ---
PATIENT IS ASLEEP COMFORTABLE NO SIGNS OF PAIN OR DISTRESS. BED IS LOW AND CALL LIGHT IS IN REACH.
--- NOTE | 2021-03-21 06:15 | NUR ---
CLOSING NOTE PATIENT IS AWAKE ALERT ORIENTED X4 BREATHING OXYGEN TITRATED DOWN TO 1 LPM FROM 3 LPM BY N/C TOLERATING WELL SATURATION AT 97%. NO SIGNS OF RESPIRATORY DISTRESS OR PAIN. IV SITE PATENT INTACT AT LEFT AC SALINE LOCK. PATIENTS BED LOW AND CALL LIGHT IN REACH. WILL ENDORSE TO NEXT SHIFT PATIENT POSSIBLE DISCHARGE TODAY.
[2021-03-21 06:53] LABS: BASOPHILS % (AUTO) 0.1 % (0.0-2.0); EOSINOPHILS % (AUTO) 0.1 % (0.0-4.0); HEMOGLOBIN 13.2 g/dL (14.0-18.0); LYMPHOCYTES # (AUTO) 2.8 K/uL (1.0-5.5); LYMPHOCYTES % (AUTO) 22.6 % (20.5-51.5); MEAN CORPUSCULAR HEMOGLOBIN 30 pg (27-31); MEAN CORPUSCULAR HGB CONC 33 % (32-36); MEAN CORPUSCULAR VOLUME 90 fL (79.0-98.0); MONOCYTES # (AUTO) 1.1 K/uL (0.0-1.0); MONOCYTES % (AUTO) 9.3 % (1.7-9.3); NEUTROPHILS # (AUTO) 8.3 K/uL (1.8-7.7); NEUTROPHILS % (AUTO) 67.9 % (40.0-70.0); PLATELET COUNT (AUTO) 354 K/uL (130-430); RED BLOOD CELL COUNT(AUTO) 4.47 MIL/uL (4.2-6.2); WHITE BLOOD COUNT (AUTO) 12.3 K/uL (4.8-10.8)
[2021-03-21 07:30] LABS: CALCIUM 8.8 mg/dL (8.4-11.0); CREATININE 0.96 mg/dL (0.55-1.30); POTASSIUM 3.8 mmol/L (3.5-5.1)
[2021-03-21] MEDS: ASCORBIC ACID 500 MG TABLET PO SCH ×2 (08:32→22:05)
[2021-03-21] MEDS: CHOLECALCIFEROL (VITAMIN D3) 5,000 UNIT TABLET PO SCH (08:32)
[2021-03-21] MEDS: PANTOPRAZOLE SODIUM 40 MG/VIAL (PROTONIX) IVP SCH (08:32)
[2021-03-21] MEDS: DEXAMETHASONE SOD PHOSPHATE 10 MG/ML VIAL IVP SCH (08:33)
--- NOTE | 2021-03-21 08:50 | NUR ---
Opening note patient out of bed to chair, a/ox4, denies pain, no signs of distress, patient is off nasal cannula 1L to room air at this time, oxygen saturation is 95% currently, continuing to monitor, educated patient on plan of care and call light system, he verbalized understanding, bed in lowest position, call light within reach, fall, aspiration and isolation precautions in place.
[2021-03-21 08:52] VITALS: BP_SYST 120
[2021-03-21] MEDS: BARICITINIB -Non-Formulary 2 MG TABLET PO SCH (09:18)
[2021-03-21] MEDS: ENOXAPARIN SODIUM 40 MG/0.4 ML SYRINGE SUBCUT SCH ×2 (09:19→22:05)
[2021-03-21 13:05] VITALS: BP_SYST 121
--- NOTE | 2021-03-21 13:50 | NUR ---
RN rounds patient resting in chair at bedside, eyes closed breathing is even and unlabored, no signs of distress, oxygen saturation on room air is currently 92-93%, continuing to monitor the patient, fall, aspiration and isolation precautions in place.
--- NOTE | 2021-03-21 14:14 | NUR ---
Second call to Client Server Developer regarding plan for home health with DME - home oxygen - will follow up as needed.
--- NOTE | 2021-03-21 14:15 | NUR ---
Nutrition F/U Admitting Diagnosis: Acute respiratory failure, COVID, pneumonia Medical History Comment: PMH: none per EMR review Pt was also found w/ moderate protein calorie malnutrition per physician notes SARS-CoV-2 Ag (Rapid) 03/10 Positive Subjective Information: Pt is in isolation precaution and RD bedside visit was deferred. RD placed phone call to pt's room and pt did not answer. Per EMR review, pt is now on 1L NC and plan is to trial pt on room air or to discharge pt w/ oxygen. Last BM 03/19 x1, CXR 03/20 showed mild increase in bilateral infiltrates. PO intake indicates pt eats 75-100% of meals, and is likely meeting adequate nutrition. Current diet remains adequate. Current Diet Order/Nutrition Support: Regular, Ensure Enlive BID x3 days Pertinent Medications: decadron, VIT D3, VIT C, zinc, protonix IV, Lovenox Pertinent Labs 03/21 Na 141WNL, K 3.8WNL, BG 120H, BUN 18WNL, Cre 0.96WNL. Height: 5 feet, 11.00 inches Weight: 242 pounds/ 109.727888 kilograms (03/15) stable Body Mass Index: 33.75 kg/m2 [place]/Adjusted Body Weight: 172#/78 kg. Adj IBW (obesity): 190#/86 kg Estimated Energy Expenditure (kcals/day) 6533-5310 kcal/day (30-35 kcal/kg Adj IBW d/t acute state) Estimated Protein Required (g/day) 103-129 gm/day (1.2-1.5 gm/kg Adj IBW d/t acute state) Estimated Fluid Required (l/day) 2.6-3 L/day (1 ml/kcal/day for maintenance) Problem/Etiology/Signs/Symptoms Increased nutritional needs related to metabolic demands as evidenced by estimated nutritional requirements for acute state. (*ongoing) Expected Outcomes/Goals - Monitor appetite and PO intakes w/ goal of pt meeting >80% of estimated nutritional needs, labs trending WNL, normal GI function, and skin integrity/wt maintenance Dietitian Recommendations * Recommend continue regular diet w/ Ensure Enlive BID (ONS provides an additional 700 kcal/day, 40 gm protein/day) Follow Up Mod Risk: F/U in 3-5 days
--- NOTE | 2021-03-21 14:21 | NUR ---
Dietitian Recommendations * Recommend continue regular diet w/ Ensure Enlive BID (ONS provides an additional 700 kcal/day, 40 gm protein/day) Please see nutrition F/U note for details. KAT, RD
--- NOTE | 2021-03-21 14:46 | NUR ---
Spoke with Dr. Villanueva regarding the plan of care, MD will discharge the patient home tomorrow once home oxygen is arrange, MD signed for DME - paper on the front of the patient's paper chart.
[2021-03-21 16:00] VITALS: BP_SYST 127
--- NOTE | 2021-03-21 18:41 | NUR ---
Closing note patient sitting up in chair at bedside, patient is on room air, oxygen saturation is 93% at this time, tolerating well, patient is eating dinner, aspiration precautions in place, all needs met, will endorse report to NOC shift nurse, call light within reach, fall and isolation precautions in place.
--- NOTE | 2021-03-21 19:30 | NUR ---
OPENING NOTE PATIENT AWAKE ALERT ORIENTED X4 NO SIGNS OF PAIN OR DISTRESS BREATHING ROOM AIR WITH SATURATION OF 93%. IV SITE PATENT AND INTACT LEFT AC SALINE LOCK. BED IS LOW AND CALL LIGHT IN REACH.
[2021-03-21 20:00] VITALS: BP_SYST 124
--- NOTE | 2021-03-22 | NUR ---
PATIENT COMFORTABLE SLEEPING NO SIGNS OF PAIN OR DISTRESS. BED IS LOW AND CALL LIGHT IN REACH.
[2021-03-22] MEDS: ALBUTEROL MDI INHALATION 8 GM INH INH SCH ×3 (00:50→14:10)
--- NOTE | 2021-03-22 03:31 | NUR ---
; DR. YING WAS AT THE UNIT INSTRUCTED VERBALLY TO RN TO DISCHARGE PATIENT FROM COVMO ISOLATION.
--- NOTE | 2021-03-22 04:00 | NUR ---
PATIENT IS AWAKE ALERT ORIENTED RESTING IN BED NO SIGNS OF PAIN OR DISTRESS. RT PUT PATIENT BACK ON 2 LPM N/C OXYGEN FOR BEDTIME SATURATION DECREASES TO 88%. PATIENTS SATURATION IS 95% ROOM AIR DURING DAY TIME. BED IS LOW AND CALL LIGHTS IN REACH.
--- NOTE | 2021-03-22 06:26 | NUR ---
CLOSING NOTE PATIENT IS AWAKE ALERT ORIENTED X4 BREATHING 2 LPM ON OXYGEN SINCE 0400 PRIOR DAY WAS ON ROOM AIR NO RESPIRATORY DISTRESS OR PAIN. IV SITE PATENT AND INTACT LEFT AC. BED IS LOW AND CALL LIGHTS IN REACH. WILL ENDORSE TO NEXT SHIFT MD DR. YING WAS INFORMED TO DISCHARGE PATIENTS ISOLATION FOR COVID AND PATIENT CAN DISCHARGE HOME. COORDINATE WITH MD / CARDIAC/VASCULAR SONOGRAPHER DISCHARGE TO HOME.
--- NOTE | 2021-03-22 08:30 | NUR ---
Education Educate patient on covid recovery, breathing exercise, proper hygiene , medication , bleeding precaution, oxygen used verbalized understanding.
[2021-03-22 08:49] VITALS: BP_SYST 116
[2021-03-22] MEDS: PANTOPRAZOLE SODIUM 40 MG/VIAL (PROTONIX) IVP SCH (08:52)
[2021-03-22] MEDS: CHOLECALCIFEROL (VITAMIN D3) 5,000 UNIT TABLET PO SCH (08:52)
[2021-03-22] MEDS: ASCORBIC ACID 500 MG TABLET PO SCH (08:52)
[2021-03-22] MEDS: ENOXAPARIN SODIUM 40 MG/0.4 ML SYRINGE SUBCUT SCH (08:53)
[2021-03-22] MEDS: BARICITINIB -Non-Formulary 2 MG TABLET PO SCH (08:55)
[2021-03-22] MEDS ORDERED: DEXAMETHASONE SOD PHOSPHATE 10 MG/ML VIAL PO SCH (09:00)
[2021-03-22] MEDS ORDERED: APIX2.5T PO (14:10)
[2021-03-22] MEDS ORDERED: ALBU8.5H8 INH (14:10)
[2021-03-22 14:23] VITALS: BP_SYST 122
[2021-03-22 14:32] VITALS: BP_SYST 122
--- NOTE | 2021-03-22 14:45 | NUR ---
D/C Patient Patient given medication reconciliation form and D/C instructions. Exit Care provided. Patient verbalized understanding. MD discussed with patient the results and treatment provided. Ambulatory with steady gait for discharge to home. Patient in stable condition, ID band removed. IV catheter removed, intact and dressing applied, no active bleeding. ERx of APIXABAN,ALBUTEROL given. Patient educated on HYGIENE, BREATHING EXERCISE, MEDICATION , OXYGEN , management..
[2021-03-22 16:00] VITALS: BP_SYST 120
--- NOTE | 2021-03-22 17:11 | NUR ---
Oxygen saturation on room air 95% , oxygen already delivered at home per patient, instruction given.
[2021-03-22 17:16] VITALS: BP_SYST 120
== END 2021-03-22 17:15 | disposition home or self-care (01) | DRG 177 ==
LOC: SED 14:16 → STU 17:52 → SIC 03-11 10:02 → SMU 03-20 19:02
PROVIDERS: ADMIT Internal Medicine; ATTEND Internal Medicine
DX: U07.1 COVID-19 (principal); J96.01 Acute respiratory failure with hypoxia; J12.82 Pneumonia due to coronavirus disease 2019; E44.0 Moderate protein-calorie malnutrition; J81.1 Chronic pulmonary edema; E66.01 Morbid (severe) obesity due to excess calories; Z88.8 Allergy status to other drugs, medicaments and biological substances; Z79.899 Other long term (current) drug therapy; Z68.33 Body mass index [BMI] 33.0-33.9, adult
CPT/HCPCS: 36415; 36600; 71045; 71275; 76376; 80048; 80053; 80061; 81000; 82550; 82553; 82728; 82803-TC; 83605; 83615; 83735; 83880; 84100; 84484; 85025; 85379; 85384; 85610-TC; 85651-TC; 85730-TC; 86140; 86886; 86900; 86901; 87040-TC; 87081; 87086; 93005; 94640; 94760; 97163-GP; C9113; G0378; J0456; J0696; J1100; J1650; J3490; J7050; J7060; Q9967

== ENCOUNTER 2021-04-18 19:08 | Emergency (ER) | payer BC, SELFPAY ==
[~2021-04-18] VITALS: Ht 180.3 cm; Wt 109.8 kg
[~2021-04-18 19:08] MED LIST changes: +ALBU8.5H8 INH; +APIX2.5T PO; -PRED20TA PO; -ZIT250 PO
[2021-04-18 19:15] VITALS: BP_SYST 143
--- NOTE | 2021-04-18 19:25 | NUR ---
Placed in room 1 . Placed on healthcare administrator, blood pressure machine and pulse oximeter. To gown for exam. Side rails up. Report given to Ramona PORTILLO.
--- NOTE | 2021-04-18 19:27 | NUR ---
dr. tarango at bedside for evaluation.
--- NOTE | 2021-04-18 19:29 | NUR ---
PATIENT AAOX4 AND AMBULATORY FROM HOME C/O BILATERAL CALF TIGHTNESS. PT UNABLE TO GIVE SPECIFIC DATE OF WHEN IT STARTED. WAS HOSPITALIZED ABOUT 1-2 WEEKS AGO WITH COVID PNA. WAS PRESCRIBED HOME WITH ELIQUIS AND FINISHED PRESCRIPTION. NOW TAKING BABY ASPIRIN EVERY DAY. VSS. PT STATED HE WALKS EVERYDAY.
--- NOTE | 2021-04-18 19:59 | NUR ---
ULTRASOUND AT BEDSIDE.
--- NOTE | 2021-04-18 20:30 | NUR ---
Blood for labwork drawn BY VEHICLE MAINTENANCE TECHNICIAN. Patient tolerated WELL.
[2021-04-18] MEDS ORDERED: IBUP-1971 PO (20:56)
[2021-04-18 21:07] LABS: BASOPHILS # (AUTO) 0.1 K/uL (0.0-0.2); BASOPHILS % (AUTO) 0.8 % (0.0-2.0); CALCIUM 9.4 mg/dL (8.4-11.0); CREATININE 1.1 mg/dL (0.55-1.30); EOSINOPHILS # (AUTO) 0.1 K/uL (0.0-0.4); EOSINOPHILS % (AUTO) 0.6 % (0.0-4.0); HEMATOCRIT 40.7 % (36-54); HEMOGLOBIN 13.5 g/dL (14.0-18.0); LYMPHOCYTES # (AUTO) 2.6 K/uL (1.0-5.5); LYMPHOCYTES % (AUTO) 28.4 % (20.5-51.5); MEAN CORPUSCULAR HEMOGLOBIN 30 pg (27-31); MEAN CORPUSCULAR HGB CONC 33 % (32-36); MEAN CORPUSCULAR VOLUME 91 fL (79.0-98.0); MONOCYTES # (AUTO) 0.7 K/uL (0.0-1.0); MONOCYTES % (AUTO) 7.6 % (1.7-9.3); NEUTROPHILS # (AUTO) 5.7 K/uL (1.8-7.7); NEUTROPHILS % (AUTO) 62.6 % (40.0-70.0); PLATELET COUNT (AUTO) 311 K/uL (130-430); POTASSIUM 4.1 mmol/L (3.5-5.1); RED BLOOD CELL COUNT(AUTO) 4.47 MIL/uL (4.2-6.2); RED CELL DISTRIBUTION WIDTH 15.1 % (9.0-15.0); WHITE BLOOD COUNT (AUTO) 9.1 K/uL (4.8-10.8)
[2021-04-18 21:16] LABS: INR 0.9 (0.80-1.20); PROTHROMBIN TIME 9.9 SECS (9.5-12.5)
[2021-04-18 21:22] LABS: ALBUMIN 3.7 g/dL (3.4-4.8); TOTAL BILIRUBIN 0.3 mg/dL (0.0-1.0)
[2021-04-18 21:43] VITALS: BP_SYST 143
--- NOTE | 2021-04-18 21:44 | NUR ---
Patient given written and verbal discharge instructions and verbalizes understanding. DR. ROSS GREEN MD discussed with patient the results and treatment provided. Patient in stable condition. ID arm band removed. Rx of MOTRIN given. Patient educated on pain management and to follow up with PMD. Pain Scale 0/10. Opportunity for questions provided and answered. Medication side effect fact sheet provided.
== END 2021-04-18 21:44 | disposition home or self-care (01) ==
LOC: SED 19:08
DX: S86.812A Strain of other muscle(s) and tendon(s) at lower leg level, left leg, initial encounter (principal); Z88.8 Allergy status to other drugs, medicaments and biological substances; Z79.899 Other long term (current) drug therapy; X50.9XXA Other and unspecified overexertion or strenuous movements or postures, initial encounter; Y93.89 Activity, other specified; Y92.89 Other specified places as the place of occurrence of the external cause; Y99.8 Other external cause status
CPT/HCPCS: 36415; 80053; 85025; 85610-TC; 85730-TC; 93971; 99284

== ENCOUNTER 2024-01-20 01:23 | Emergency (ER) | payer BC ==
[~2024-01-20] VITALS: Ht 180.3 cm; Wt 120.2 kg
[~2024-01-20 01:23] MED LIST changes: +IBUP-1971 PO
[2024-01-20 01:26] VITALS: BP_SYST 168; PULSE 97; RESP 22; TEMP 98.9; O2SAT 97
[2024-01-20 02:14] VITALS: BP_SYST 168; PULSE 97; RESP 22; TEMP 98.9; O2SAT 97
== END 2024-01-20 02:14 | disposition home or self-care (01) ==
LOC: SED 01:23
DX: S70.12XA Contusion of left thigh, initial encounter (principal); Z88.8 Allergy status to other drugs, medicaments and biological substances; Z79.899 Other long term (current) drug therapy; Z79.2 Long term (current) use of antibiotics; W18.39XA Other fall on same level, initial encounter; Y93.89 Activity, other specified; Y92.89 Other specified places as the place of occurrence of the external cause; Y99.8 Other external cause status
CPT/HCPCS: 99281

== ENCOUNTER 2024-01-27 22:51 | Emergency (ER) | payer BC ==
[~2024-01-27] VITALS: Ht 180.3 cm; Wt 121.6 kg
[2024-01-27 22:54] VITALS: BP_SYST 142; PULSE 82; TEMP 98; O2SAT 96
[2024-01-27] MEDS: KETOROLAC TROMETHAMINE 30 MG VIAL IM ONE (23:29)
[2024-01-28] MEDS ORDERED: SULF1TAB48 PO (00:50)
[2024-01-28] MEDS ORDERED: OXYC-128 PO (00:50)
[2024-01-28 01:00] VITALS: BP_SYST 142; PULSE 82; TEMP 98; O2SAT 96
== END 2024-01-28 01:00 | disposition home or self-care (01) ==
LOC: SED 22:51
DX: L03.116 Cellulitis of left lower limb (principal); R22.42 Localized swelling, mass and lump, left lower limb; Z79.899 Other long term (current) drug therapy; Z79.2 Long term (current) use of antibiotics
CPT/HCPCS: 99285; 73590; 96372; 93971; J1885